=== PATIENT | female | born 1970 | race Caucasian/White ===

== ENCOUNTER 2018-11-02 15:22 | Outpatient (CLI) | payer OTHER | END 2018-11-02 15:23 | disposition home or self-care (01) | LOC: SC 15:22 | PROVIDERS: ATTEND Internal Medicine Pulmonary Disease | DX: G47.10 Hypersomnia, unspecified (principal); R41.89 Other symptoms and signs involving cognitive functions and awareness; R06.83 Snoring; R06.81 Apnea, not elsewhere classified; G47.8 Other sleep disorders; E66.9 Obesity, unspecified; Z68.41 Body mass index [BMI] 40.0-44.9, adult; Z87.891 Personal history of nicotine dependence | CPT/HCPCS: 99203; 99212 ==

== ENCOUNTER 2018-11-10 08:19 | Outpatient (CLI) | payer OTHER | END 2018-11-10 23:59 | disposition home or self-care (01) | LOC: SC 08:19 | PROVIDERS: ATTEND Internal Medicine Pulmonary Disease | DX: G47.33 Obstructive sleep apnea (adult) (pediatric) (principal) | CPT/HCPCS: 95810 ==

== ENCOUNTER 2018-12-07 13:05 | Outpatient (CLI) | payer OTHER | END 2018-12-07 13:06 | disposition home or self-care (01) | LOC: SC 13:05 | PROVIDERS: ATTEND Nurse Practitioner Family | DX: G47.33 Obstructive sleep apnea (adult) (pediatric) (principal) | CPT/HCPCS: 99212; 99214 ==

== ENCOUNTER 2019-01-21 09:55 | Day surgery (SDC) | payer OTHER ==
[~2019-01-21 09:55] MED LIST: CEFAZOLIN SODIUM IN 0.9 % NACL 2 GM/100 ML BAG IV ONE
[2019-01-21] MEDS ORDERED: BUPIVACAINE 0.25% PF 10 ML VIAL ONE (10:13)
[2019-01-21 10:18] LABS: HCG UR QUAL NEGATIVE
[2019-01-21] MEDS ORDERED: LACTATED RINGERS 1,000 ML IV ONE (10:36)
--- NOTE | 2019-01-21 10:51 | ANESTHESIA ---
Pre-Anesthesia VS, & Labs - Diagnosis R Carpal Tunnel Syndrome - Procedure R CTR Vital Signs: Temp Pulse Resp BP Pulse Ox 36.1 C L 80 16 146/85 H 98 01/21/19 10:00 01/21/19 10:00 01/21/19 10:00 01/21/19 10:00 01/21/19 10:00 Height 5 ft 6 in Weight (kg) 121.7 kg - NPO >8 hours - Is Patient ?: No - Lab Results Lab results reviewed: Yes Home Medications and Allergies Home Medications: Ambulatory Orders Amlodipine Besylate/Benazepril [Lotrel 10-40 mg Capsule] 1 each PO 01/11/19 Ergocalciferol [Vitamin D2] 50,000 unit PO Q7D 01/11/19 Amlodipine Besylate/Benazepril [Lotrel 10-40 mg Capsule] 1 each PO 01/11/19 Ergocalciferol [Vitamin D2] 50,000 unit PO Q7D 01/11/19 Allergies/Adverse Reactions: Allergies Allergy/AdvReac Type Severity Reaction Status Date / Time isoniazid AdvReac Intermediate Unknown Verified 01/11/19 11:40 Anes History & Medical History - Anesthetic History Anesthesia Complications: reports: No previous complications Family history of Anesthesia Complications: Denies Family history of Malignant Hyperthermia: Denies - Medical History Cardiovascular: reports: Hypertension Pulmonary: reports: Sleep apnea, CPAP use Gastrointestinal: reports: Other Urinary: reports: Other Musculoskeletal: reports: Other Endocrine/Autoimmune: reports: None Skin: reports: None - Surgical History General: Other (lap band) Eyes Ears Nose Throat (EENT): Tonsil/Adenoidectomy Urologic: Bladder surgery Exam General: Alert, Oriented x3, Cooperative Dental: WNL Mouth Openin Fingerbreadth Neck Mobility: Normal Mallampati classification: II Respiratory: Lungs clear Cardiovascular: Regular rate Neurological: Normal speech Mental/Cognitive Status: Alert/Oriented X3 Cognitive Status: Within normal limits Plan Anesthesia Type: General Consent for Procedure(s) Verified and Reviewed: Yes Code Status: Attempt Resuscitation ASA classification: 2-Mild systemic disease Is this case an emergency?: No
[2019-01-21] MEDS ORDERED: BUPIVACAINE 0.25% PF 10 ML VIAL SUBQ ONE ×2 (11:39→11:54)
[2019-01-21] MEDS ORDERED: ONDANSETRON 4 MG/2 ML VIAL IVP ONE (12:00)
[2019-01-21] MEDS ORDERED: LIDOCAINE-MPF 2% 5 ML VIAL IM ONE (12:00)
[2019-01-21] MEDS ORDERED: fentaNYL 100 MCG/2 ML VIAL IVP ONE (12:00)
[2019-01-21] MEDS ORDERED: PROPOFOL 200 MG/20 ML VIAL IVP ONE (12:00)
[2019-01-21] MEDS ORDERED: MIDAZOLAM 2 MG/2 ML VIAL IVP ONE (12:00)
[2019-01-21] MEDS ORDERED: KETOROLAC 30 MG/ML VIAL IVP ONE (12:00)
[2019-01-21] MEDS ORDERED: DEXAMETHASONE 4 MG/ML VIAL IVP ONE (12:00)
[2019-01-21] MEDS ORDERED: oxyCODONE 5 MG TABLET PO PRN (12:06)
[2019-01-21] MEDS ORDERED: ONDANSETRON 4 MG/2 ML VIAL IVP PRN (12:06)
--- NOTE | 2019-01-21 12:08 | OPERATIVE REPORT ---
Operative Report - Other Other Information/Narrative: Date of Surgery: 21 January 2019 Pre-Op Diagnosis: Right carpal tunnel syndrome Procedure: Right open carpal tunnel release Postop Diagnosis: Right carpal tunnel syndrome Primary Surgeon: Tapan Flores Secondary Surgeon: None Complications: None Tourniquet Time: 6 minutes EBL: 2 cc Indication For Surgery: 48-year-old female with years of right carpal tunnel symptoms confirmed with electrodiagnostic studies. Symptoms were not controlled with nonoperative measures. She desired to proceed with surgery. The risks, benefits, and alternatives were discussed. Risks include pain, bleeding, infection, damage to nearby structures, numbness, pillar pain, lack of symptom relief, need for further surgery, DVT, PE, stroke, and . Written consent was obtained. The patient was met in the preoperative holding on the day of the procedure. Operative extremity was signed. Consent was verified. They desire to proceed. They were brought to the operating room and placed in the supine position. A well-padded forearm tourniquet was applied. They were prepped and draped in the standard fashion. A surgical timeout was held will be confirmed the patient procedure, identity, allergies, antibiotics, images and laterality. All were in agreement we proceeded. An Esmarch was used to exsanguinate the limb and the tourniquet was elevated to 250 mmHg. A 3cm longitudinal incision was made in line with the ulnar border of the ring finger starting at Paul's Cardinal line distally. This was just radial to the hook of the hamate. Bipolar electrocautery was used at the skin edge. Sharp dissection was brought down through the palmar fascia. Retractors were placed. The transverse carpal ligament was identified and a knife was used to separate it. The contents of the carpal tunnel were seen. Knife dissection was used to release the ligament as far proximal as could be visualized. Long handled Metzenbaum scissors were then used to create a pocket just superficial to the transverse carpal ligament and a retractor was placed. I then used a long handled Metzenbaum with the tips pointed ulnarly to complete the release 2 cm into the antebrachial fascia. Retractors were then moved distally and I confirmed complete release in the appearance of fat in the palm. A freer elevator was used to confirm complete release both proximally and distally. The wound was packed with a moist gauze and the tourniquet was deflated. After holding for 3 minutes the gauze was removed and bleeding was coming from the skin edge. Bleeding was controlled with bipolar electrocautery. The wound was closed with 3-0 nylon in a horizontal mattress configuration. 5 cc of local anesthetic was placed. A sterile bulky dressing was applied. She was awakened and transferred to the recovery room.
[2019-01-21 13:11] VITALS: BP 128/68
== END 2019-01-21 09:56 | disposition home or self-care (01) ==
LOC: SDS 09:55
PROVIDERS: ATTEND Obstetrics & Gynecology
PROC: 01N50ZZ Release Median Nerve, Open Approach (ICD-10-PCS; principal; 2019-01-21 11:30)
DX: G56.03 Carpal tunnel syndrome, bilateral upper limbs (principal); G47.30 Sleep apnea, unspecified; I10 Essential (primary) hypertension; R73.03 Prediabetes; E66.9 Obesity, unspecified
CPT/HCPCS: 64721; 81025; J0690; J7120

== ENCOUNTER 2019-03-02 11:00 | Outpatient (CLI) | payer OTHER ==
--- NOTE | 2019-03-02 12:26 | SLEEP CARE CONSULTATION ---
Information from patient questionnaire entered by Michelle Murillo. I have reviewed and concur with the information entered by Michelle Murillo. This document represents the service I personally performed and the decisions made by me, Karen Landa, RN, MSN, [employer]. History of Present Illness Previous diagnosis: Severe, Obstructive Sleep Apnea-Hypopnea Syndrome AHI: 38.1 Reason for CPAP/BiPAP follow up: first compliance Equipment obtained from: [facility] Mask style: Nasal Backup mask available: Yes Last cushion change: no change since set up HPI additional information: She reports that she has had difficulty getting her CPAP set up from [facility] despite repeatd phone calls. She was told the delay was due to authorization and that the prescription sent was wrong which does not make sense as it meets Medicare requirements. She requested an appointment and then noted confusion in office in regard to her set up and paper work and others. She also requested a different mask similar to her spouses but was refused at time of set up and informed to contact them in 2 weeks does not work. She called then and went into office to get and they did not have all the pieces so asked to send the mask. She is very frustrated so far with [facility] customer service. CPAP Compliance Data - Data Reviewed with Patient Average duration of nightly device use: 8h 25m Compliance rate %: 93 Current pressure setting (cmH2O): 4-15 Heated hose settin Compliance data discussion: Humidity is not being used due to condensation hose and mask. She was not aware how to adjust settings. No condensation since water not used. There is a heated hose that was set at 72 when plugged in to view device settings. Subjective Patient concerns: reports: condensation in mask/hose. denies: aerophagia, mask discomfort, air blowing in eyes, mask leak noise, nasal congestion, dry mouth, nose, throat, epistaxis Observed to snore while using device: No On therapy, patient: reports: sleeping better, awakening more refreshed, being more awake and alert during the day, more rested overall. denies: drowsiness while driving Initial Manor Sleepiness Scale score: 4 Current [place] Sleepiness Scale score: 4 Allergies and Home Medications Known drug allergies: No Home medication list reviewed: Yes Allergy and home medication list: Lotrol 10-40mg daily She is forgetting to take weekly Vitamin D and encouraged to find a means to remind her or discuss with primary care. She is supposed to take Vitamine D 50,000 Review of Systems Cardiovascular: reports: high blood pressure Gastrointestinal: reports: difficulty swallowing Urinary: reports: incontinence, frequency, urgency Neurological: reports: fainting or unconsciousness Ear/Nose/Throat: reports: tonsillectomy, wisdom teeth removed Endocrine: reports: sluggishness, too hot or cold, excessive thirst, increased appetite, increased urination, unexplained weakness, other Musculoskeletal: reports: neck pain, back pain, mobility problems Impression and Plan 1. Obstructive Sleep Apnea-Hypopnea Syndrome, severe, with good treatment compliance and good apnea control. On CPAP therapy, there is improved sleep quality and continues to feel more rested overall. Thus I will change pressure to 95th percentile pressure of [id number]. Patient advised to contact this office if the pressure is uncomfortable so can be adjusted or if the pressure is not changed by next week by [facility]. If future problems in getting service from [facility], she is to contact this office. To reduce condensation, she was shown how to adjust heated hose and humidity and rationale for changes. She was shown how to turn off the humidity on her device as she brought it in to show it did not have a data card as requested to bring. She has gained some weight. I explained how continued weight gain can increase her CPAP pressure requirements. She is advised to lose weight. Symptoms to report of pressure adjustment discussed. Patient's apnea severity and rationale for treatment to reduce apnea, improve sleep quality and reduce cardiovascular and cerebrovascular events was reviewed. I also reviewed the benefit of consistent device use of CPAP for hypertension, gastric reflux. Change nasal CPAP pressure at 11 cm H2O. Notify me if snoring with the mask or feeling that the pressure is too much or too little. Attempt to lose weight. Adjust heated hose / humidity Return for follow-up in 3 months[one year], or sooner if concerns arise. I spent 100% of this 45 minute visit face to face with the patient with greater than 50% of this was spent time counseling the patient and coordination of care.
== END 2019-03-02 11:01 | disposition home or self-care (01) ==
LOC: SC 11:00
PROVIDERS: ATTEND Nurse Practitioner Family
DX: G47.33 Obstructive sleep apnea (adult) (pediatric) (principal)
CPT/HCPCS: 99212; 99215

== ENCOUNTER 2019-03-18 06:05 | Day surgery (SDC) | payer OTHER ==
[2019-03-18] MEDS ORDERED: CEFAZOLIN SODIUM IN 0.9 % NACL 2 GM/100 ML BAG IV ONE (06:40)
[2019-03-18] MEDS ORDERED: LACTATED RINGERS 1,000 ML IV ONE (06:53)
--- NOTE | 2019-03-18 07:01 | ANESTHESIA ---
Pre-Anesthesia VS, & Labs - Diagnosis Left CTS - Procedure Left CTR Vital Signs: Temp Pulse Resp BP Pulse Ox 36.2 C L 86 20 134/51 H 98 03/18/19 06:34 03/18/19 06:34 03/18/19 06:34 03/18/19 06:34 03/18/19 06:34 Height 5.75 in Weight (kg) 124 kg - NPO >8 hours - Is Patient ?: No, Waiver signed - Lab Results Lab results reviewed: Yes Home Medications and Allergies Amlodipine Besylate/Benazepril [Lotrel 10-40 mg Capsule] 1 each PO QPM 01/11/19 Ergocalciferol [Vitamin D2] 50,000 unit PO Q7D 01/11/19 Allergies/Adverse Reactions: Allergies Allergy/AdvReac Type Severity Reaction Status Date / Time isoniazid AdvReac Intermediate Unknown Verified 03/15/19 11:38 Anes History & Medical History - Anesthetic History Anesthesia Complications: reports: No previous complications Family history of Anesthesia Complications: Denies Family history of Malignant Hyperthermia: Denies - Medical History Cardiovascular: reports: Hypertension Pulmonary: reports: Sleep apnea, CPAP use Gastrointestinal: reports: None Urinary: reports: None Neuro: reports: None Musculoskeletal: reports: Other Endocrine/Autoimmune: reports: None Blood Disorders: reports: None Skin: reports: None Smoking Status: Never smoker Psychosocial: reports: No issues indicated - Surgical History General: Other Eyes Ears Nose Throat (EENT): Tonsil/Adenoidectomy Urologic: Bladder surgery Orthopedic: Carpal Tunnel surgery Exam General: Alert, Cooperative Dental: WNL Mouth Opening: Greater than 4 Fingerbreadths Neck Mobility: Normal Mallampati classification: II Thyromental Distance: greater than 6 cm Respiratory: Lungs clear Cardiovascular: Regular rate Mental/Cognitive Status: Alert/Oriented X3 Cognitive Status: Within normal limits Plan Anesthesia Type: General Consent for Procedure(s) Verified and Reviewed: Yes Code Status: Attempt Resuscitation ASA classification: 2-Mild systemic disease Is this case an emergency?: No
[2019-03-18] MEDS ORDERED: BUPIVACAINE 0.25% PF 10 ML VIAL ONE (07:34)
[2019-03-18] MEDS ORDERED: ONDANSETRON 4 MG/2 ML VIAL IVP ONE (07:37)
[2019-03-18] MEDS ORDERED: DEXAMETHASONE 4 MG/ML VIAL IVP ONE (07:37)
[2019-03-18] MEDS ORDERED: MIDAZOLAM 2 MG/2 ML VIAL IVP ONE (07:37)
[2019-03-18] MEDS ORDERED: NEOSTIGMINE 1 MG/1 ML 10 ML MDV IVP ONE (07:37)
[2019-03-18] MEDS ORDERED: GLYCOPYRROLATE 1 MG/5 ML VIAL IVP ONE (07:37)
[2019-03-18] MEDS ORDERED: KETOROLAC 30 MG/ML VIAL IVP ONE (07:37)
[2019-03-18] MEDS ORDERED: SEVOFLURANE 250 ML LIQUID INH ONE (07:37)
[2019-03-18] MEDS ORDERED: PROPOFOL 200 MG/20 ML VIAL IVP ONE (07:37)
[2019-03-18] MEDS ORDERED: fentaNYL 100 MCG/2 ML VIAL IVP ONE (07:37)
[2019-03-18] MEDS ORDERED: ROCURONIUM 50 MG/5 ML VIAL IVP ONE (07:37)
[2019-03-18] MEDS ORDERED: BUPIVACAINE 0.25% PF 30 ML VIAL SUBQ ONE (08:22)
[2019-03-18] MEDS ORDERED: ONDANSETRON 4 MG/2 ML VIAL IVP PRN (08:57)
[2019-03-18] MEDS ORDERED: oxyCODONE 5 MG TABLET PO PRN (08:57)
--- NOTE | 2019-03-18 09:00 | OPERATIVE REPORT ---
Operative Report - Other Other Information/Narrative: Date of Surgery: 18 March 2019 Pre-Op Diagnosis: Left carpal tunnel syndrome Procedure: Left open carpal tunnel release Postop Diagnosis: Left carpal tunnel syndrome Primary Surgeon: Tapan Flores Secondary Surgeon: None Complications: None Tourniquet Time: 6 minutes EBL: 2 cc Indication For Surgery: 48-year-old female with bilateral carpal tunnel syndrome who successfully underwent a right carpal tunnel release on 20 January. Her symptoms were refractory to conservative measures. We discussed the risks and benefits of surgery as well as the postoperative protocol and she desired to proceed.. The risks, benefits, and alternatives were discussed. Risks include pain, bleeding, infection, damage to nearby structures, numbness, pillar pain, lack of symptom relief, need for further surgery, DVT, PE, stroke, and . Written consent was obtained. The patient was met in the preoperative holding on the day of the procedure. Operative extremity was signed. Consent was verified. They desire to proceed. They were brought to the operating room and placed in the supine position. A well-padded forearm tourniquet was applied. They were prepped and draped in the standard fashion. A surgical timeout was held will be confirmed the patient pr ocedure, identity, allergies, antibiotics, images and laterality. All were in agreement we proceeded. An Esmarch was used to exsanguinate the limb and the tourniquet was elevated to 250 mmHg. A 3cm longitudinal incision was made in line with the ulnar border of the ring finger starting at Paul's Cardinal line distally. This was just radial to the hook of the hamate. Bipolar electrocautery was used at the skin edge. Sharp dissection was brought down through the palmar fascia. Retractors were placed. The transverse carpal ligament was identified and a knife was used to separate it. The contents of the carpal tunnel were seen. Knife dissection was used to release the ligament as far proximal as could be visualized. Long handled Metzenbaum scissors were then used to create a pocket just superficial to the transverse carpal ligament and a retractor was placed. I then used a long handled Metzenbaum with the tips pointed ulnarly to complete the release 2 cm into the antebrachial fascia. Retractors were then moved distally and I confirmed complete release in the appearance of fat in the palm. A freer elevator was used to confirm complete release both proximally and distally. The wound was packed with a moist gauze and the tourniquet was deflated. After holding for 3 minutes the gauze was removed and bleeding was coming from the skin edge. Bleeding was controlled with bipolar electrocautery. The wound was closed with 4-0 nylon in a horizontal mattress configuration. 7 cc of local anesthetic was placed. A sterile bulky dressing was applied. He was awakened and transferred to the recovery room.
[2019-03-18] MEDS ORDERED: oxyCODONE 5 MG TABLET ONE (09:51)
[2019-03-18 10:13] VITALS: BP 133/72
== END 2019-03-18 06:06 | disposition home or self-care (01) ==
LOC: SDS 06:05
PROVIDERS: ATTEND Orthopaedic Surgery
PROC: 01N50ZZ Release Median Nerve, Open Approach (ICD-10-PCS; principal; 2019-03-18 07:30)
DX: G56.02 Carpal tunnel syndrome, left upper limb (principal); G47.30 Sleep apnea, unspecified; I10 Essential (primary) hypertension; E66.9 Obesity, unspecified; Z98.84 Bariatric surgery status
CPT/HCPCS: 64721; A9270; J0690; J3490; J7120

== ENCOUNTER 2019-08-09 13:22 | Outpatient (CLI) | payer OTHER ==
--- NOTE | 2019-08-09 14:20 | SLEEP CARE CONSULTATION ---
Information from patient questionnaire entered by Michelle Murillo. I have reviewed and concur with the information entered by Michelle Murillo. This document represents the service I personally performed and the decisions made by me, Karen Landa, RN, MSN, [employer]. History of Present Illness Previous diagnosis: Severe, Obstructive Sleep Apnea-Hypopnea Syndrome AHI: 38.1 Reason for follow up: other (5 month) Equipment type: CPAP Equipment obtained from: [facility] (having difficulty getting supplies- uses her spouse's) Mask style: Nasal Mask brand: Resmed Backup mask available: No Last cushion change: 2 months ago Prior sleep studies: Yes HPI additional information: She stopped using the humidity and heated hose due to warmth of air not comfortable. The pressure was not changed as ordered. CPAP Compliance Data - Data Reviewed with Patient Average duration of nightly device use: 7h 27m Compliance rate %: 88 Current pressure setting (cmH2O): 4-15 Humidity setting: unknown Average residual AHI: 1.1 Average large leak: zero Subjective Patient concerns: reports: mask discomfort (from plastic of mask form. offered Pad a Cheek - too warm), nasal congestion (intermittent), other (states she requires 10 hours of sleep, will go back to sleep after waking and will take naps with / without CPAP. ). denies: aerophagia, air blowing in eyes, mask leak noise, condensation in mask/hose, dry mouth, nose, throat, epistaxis Observed to snore while using device: No (deployed) Current pressure setting perceived as: comfortable On therapy, patient: reports: sleeping better (rare nocturia now), awakening more refreshed. denies: drowsiness while driving Initial [place] Sleepiness Scale score: 4 Current [place] Sleepiness Scale score: 6 Allergies and Home Medications Known drug allergies: Yes Home medication list reviewed: Yes (stopped Fish oil vitamin B6) Allergy and home medication list: Lotrol ( AMlodipine- Benazapril) 10-40mg daily Aloevera tablet as directed Vitamin D 50,000 IU one weekly Review of Systems Review of systems same as previous: Yes Physical Exam Blood Pressure: 120/70 Cuff size: long Heart Rate: 78 O2 Saturation: 98 Height: 5 ft 7 in Weight: 268 lb Weight change since last visit: lost 7 pounds Body Mass Index: 42.0 BMI Classification: Obesity Class 3 Impression and Plan 1. Obstructive Sleep Apnea-Hypopnea Syndrome, severe, with good treatment compliance and good apnea control. On CPAP therapy, the patient has better sleep quality and awakens more refreshed but no change in restfulness throughout the day. She states she requires 10 hours of sleep but the average CPAP use is 7.5 hours. She continues taking naps mid day for about 30-40minutes with / without CPAP. It is unclear as to cause of her fatigue. She has just been diagnosed with diabetes which can contribute to fatigue if blood sugars elevated. I advised her to follow up with PCP for further evaluation. In addition , I will have her complete a sleep diary and then a sleep log to show her sleep schedule better. I advised her to wake at regular time but not to go back to sleep after waking and to restrict time in bed to 8 hours as an irregular sleep schedule and too much sleep can also increase fatigue. For her mask concerns, a mask refitting will be ordered to try a style that is more comfortable frame then current mask. I showed her PadACheek cloth barriers but patient states she sleeps hot and would not work. She is to contact [facility] and also check why no updated supplies. But she is make sure supplies are updated after mask fitting so can get a new mask style. Nasal congestion can be reduced with increasing the CPAP humidity as shown on sample device. The heated hose can be adjusted higher if condensation with higher humidity setting. Patient prefers not to use humidity at this time due to warmth of air. Saline nasal spray sample was also given to use prior to CPAP to clear nasal secretions and wash off any nasal allergens to facilitate nasal breathing. In addition, a steamy shower before bed will often assist nasal drainage. Patient has lost some weight. Currently patients BMI is class 3 obesity class. I explained how obesity increases the risk of apnea, CPAP pressure requirements and overall health risks especially cardiovascular and diabetes. Thus patient is advised to lose weight. Weight loss can be done with reducing portion size, refined foods and balancing content with vegetables, fruit and protein. A diet consultation can be helpful in achieving optimal weight loss goals. The BMI chart was reviewed. Patient encouraged to discuss their weight loss goals with their PCP and consider a referral to a supervisor rubber covering.The patient's CPAP pressure was changed to CPAP at 9-11 cmH2O to accommodate for future weight loss. Symptoms to report for additional pressure adjustment discussed. Since she has just been diagnosed with diabetes, I informed her that there are diabetic classes at [facility] that include classes about diet. Patient's apnea severity and rationale for treatment to reduce apnea, improve sleep quality and reduce cardiovascular and cerebrovascular events was reviewed. I also reviewed the benefit of consistent device use of CPAP for hypertension, gastric reflux. * Change CPAP pressure to 9-11 cmH2O - second request * Notify me if snoring with mask or feeling that the pressure is too much or too little * Attempt to lose weight * Check with PCP re diabetic classes / diet consultation and fatigue evaluation. * Call this office if any problems using CPAP * Restrict time in bed to 8 hours. * Regulate sleep schedule. * sleep diary then sleep log * Implement methods to reduce nasal congestion. * Mask refitting * update CPAP supplies * Return for follow up in 1- 2 months , or sooner if concerns arise Time Spent with Patient (minutes): 40 I spent 100% of this visit face to face with the patient with greater than 50% of this was spent time counseling the patient and coordination of care.
[2019-08-11 10:14] VITALS: BP 120/70
== END 2019-08-09 13:23 | disposition home or self-care (01) ==
LOC: SC 13:22
PROVIDERS: ATTEND Nurse Practitioner Family
DX: G47.33 Obstructive sleep apnea (adult) (pediatric) (principal); E66.9 Obesity, unspecified; Z68.41 Body mass index [BMI] 40.0-44.9, adult
CPT/HCPCS: 99212; 99215

== ENCOUNTER 2019-09-15 14:15 | Outpatient (CLI) | payer OTHER ==
--- NOTE | 2019-09-15 16:59 | CARDIAC PROCEDURE NOTE ---
DATE OF SERVICE: 09/15/2019 Physician: Eleonora Gooden MD, [facility] INDICATION: Obesity. CARDIAC RISK FACTORS (per questionnaire): Hypertension, diabetes not on medications, elevated cholesterol not on medications, morbid obesity and sedentary lifestyle. DESCRIPTION OF PROCEDURE: After signing informed consent, the patient underwent a Gunnar-protocol treadmill stress test. No imaging study was ordered with this test. RESTING HEART RATE: 85. PEAK HEART RATE: 148 (85% predicted maximum heart rate for age). RESTING BLOOD PRESSURE: 126/78. PEAK BLOOD PRESSURE: 176/78. The patient exercised for 5 minutes and 39 seconds on a Gunnar-protocol treadmill stress test. She achieved a peak heart rate of 148 (85% PMHR) and 7.1 METS. The patient developed mild shortness of breath in stage I, and moderate to severe shortness of breath in stage II, and rated her Woo scale at 18/20 regarding perceived exertion. She requested to stop because of fatigue, shortness of breath and low back pain. She had no chest pain during this test. Oxygen saturation was 97-99% throughout the entire test, on room air. RESTING EKG: Normal sinus rhythm and within normal limits. EKG AT PEAK: No new ST-segment or T-wave changes. SUMMARY 1. Normal resting EKG. 2. No ischemic changes by EKG criteria during this treadmill stress test. 3. Poor exercise tolerance. 4. This patient's cardiac risk based on all the above: Low-Moderate. cc: [facility] TD: 09/15/2019 16:50 MTDAlyssa
== END 2019-09-15 14:16 | disposition home or self-care (01) ==
LOC: DI 14:15
PROVIDERS: ATTEND Family Medicine
DX: E66.01 Morbid (severe) obesity due to excess calories (principal); I10 Essential (primary) hypertension; E11.9 Type 2 diabetes mellitus without complications; E78.00 Pure hypercholesterolemia, unspecified
CPT/HCPCS: 93017

== ENCOUNTER 2020-01-17 13:21 | Outpatient (CLI) | payer OTHER ==
[2020-01-17 14:04] VITALS: BP 126/76
--- NOTE | 2020-01-17 14:04 | SLEEP CARE CONSULTATION ---
Information from patient questionnaire entered by Mili Barry. I have reviewed and concur with the information entered by Mili Barry. This document represents the service I personally performed and the decisions made by me, Karen Landa, RN, MSN, [employer]. History of Present Illness Service Date and Time: 01/17/2020 1321 Previous diagnosis: Severe, Obstructive Sleep Apnea-Hypopnea Syndrome AHI: 38.1 (in 2019) Reason for follow up: other (5 month with pressure change) Equipment type: CPAP Equipment obtained from: [employer] (getting supplies as needed now - there was delay) Mask style: Nasal Mask brand: Resmed Backup mask available: Yes (old spare mask ) Last cushion change: 2 weeks ago Prior sleep studies: Yes Year and Where: 2019 - [facility] Type of Sleep Study: Polysomnography HPI additional information: Sleep diaries completed to check sleep schedule to see if cause of fatigue and extra need for sleep. She was advised to regulate sleep schedule but unable due to spouse returned from deployment and kids schedule erratic. Review of sleep diary showed that her usual bedtime was between 11:30pm to 1am. usual wake time is from 8:30- 10:30am. She turns off her alarm at 9am frequently. She is sleeping better at night with CPAP but having more of a problem waking at regular time and likes to sleep per patient. She is no longer sleepy during day but fatigued throught out the day. She has had her thyroid checked and normal. She has not seen her provider for fatigue complaint. Recently tried some new caffeine drinks given by friend and even taking in morning affects ability to sleep at night. CPAP Compliance Data - Data Reviewed with Patient Average duration of nightly device use: 8.5 Compliance rate %: 98 (90 days) Current pressure setting (cmH2O): 9-11 Humidity settin Average residual AHI: 1.0 Subjective Patient concerns: reports: mask leak noise (moving her cushion frequently to adjust mask. / does not wash equipment ), nasal congestion (chronic ). denies: aerophagia, mask discomfort, air blowing in eyes, condensation in mask/hose, dry mouth, nose, throat, epistaxis Observed to snore while using device: No Current pressure setting perceived as: comfortable On therapy, patient: reports: sleeping better, being more awake and alert during the day, more rested overall (but daytime fatigue) Initial [place] Sleepiness Scale score: 4 (in 2019) Current [place] Sleepiness Scale score: 4 Allergies and Home Medications Home medication list reviewed: No (no changes) Review of Systems Review of systems same as previous: Yes Physical Exam Blood Pressure: 126/76 Cuff size: large Heart Rate: 90 O2 Saturation: 98 Height: 5 ft 6 in Weight: 276 lb 12.8 oz Body Mass Index: 44.6 BMI Classification: Morbidly Obese Impression and Plan 1. Obstructive Sleep Apnea-Hypopnea Syndrome, severe, with good treatment compliance and good apnea control. On CPAP therapy, the patient has better sleep quality and is more awake and alert and more rested overall. However, she continues to feel fatigued during the day. She was unable regulate sleep schedule as noted on sleep diaries in HPI. Please see below fatigue notation. Chronic nasal congestion can be reduced with increasing the CPAP humidity. The heated hose can be adjusted higher if condensation with higher humidity setting. Saline nasal spray sample can also be used prior to CPAP to clear nasal secretions and wash off any nasal allergens to facilitate nasal breathing. In addition, a steamy shower before bed will often assist nasal drainage. To reduce mask leaks, I discussed the importance of keeping her mask clean daily for a better seal. This can be incorporated when first awakens and after brushing teeth. In addition I advised all equipment to be washed weekly. Printed instructions will be given at check out. Patient's apnea severity and rationale for treatment to reduce apnea, improve sleep quality and reduce cardiovascular and cerebrovascular events was reviewed. 2.Fatigue, that could be related partially to her irregular sleep schedule and spending too much time in bed. Thus she is advised to regulate her wake time and limit time in bed to 8 hours. I explained the homestatic sleep drive and circadian rhythm and how this affects her ability to sleep at night and refreshment in the morning. She is also advised to follow up with her PCP for further evaluation of fatigue. I explained there could be other medical conditions contributing to her fatigue. She feels it her fatigue could be due to her weight. Thus I advised to discuss a referral to diet consultation with her PCP. * Continue auto CPAP pressure at 9-11 cmH2O * Implement cleaning equipment as discussed. * Implement methods to reduce nasal congestion. * Notify me if snoring with mask or feeling that the pressure is too much or too little * Attempt to lose weight * Call this office if any problems using CPAP * Follow up with PCP for further evaluation of fatigue. * Return for follow up in 6 months , or sooner if concerns arise Visit Type: In Office Time Spent with Patient (minutes): 32 Provider Statement: I spent 100% of the Face to Face Visit with the patient with greater than 50% spent counseling the patient and coordination of care.
== END 2020-01-17 13:22 | disposition home or self-care (01) ==
LOC: SC 13:21
PROVIDERS: ATTEND Nurse Practitioner Family
DX: G47.33 Obstructive sleep apnea (adult) (pediatric) (principal); R53.83 Other fatigue; E66.01 Morbid (severe) obesity due to excess calories; Z68.41 Body mass index [BMI] 40.0-44.9, adult
CPT/HCPCS: 99212; 99214